=== PATIENT | male | born 1960 | race African-American/Black ===

== ENCOUNTER 2017-02-10 14:18 | Emergency (ER) | payer MEDICAID, OTHER ==
[~2017-02-10] VITALS: Ht 180.3 cm; Wt 81.0 kg
[2017-02-10] MEDS ORDERED: SODIUM CHLORIDE 0.9% 1,000 ML IV ONE ×2 (14:45→17:00)
[2017-02-10] MEDS ORDERED: KETOROLAC 30MG/ML VIAL IV STA (14:45)
[2017-02-10 15:34] LABS: BASOPHILS % 0.8 % (0.0-2.0); EOSINOPHILS % 3.5 % (0.0-5.0); HEMATOCRIT. 38.5 % (42.0-52.0); LYMPHOCYTES % 18.1 % (20.0-50.0); MEAN CORPUSCULAR HEMOGLOBIN 29.9 pg (28.0-32.0); MEAN CORPUSCULAR VOLUME 88.2 fL (80.0-94.0); MEAN PLATELET VOLUME 7.1 fl (7.4-10.4); MONOCYTES % 7.6 % (2.0-8.0); PLATELET 259 x1000/uL (130-400); RED BLOOD CELL COUNT 4.37 mill/uL (4.7-6.1); RED CELL DISTRIBUTION WIDTH 13.2 % (11.6-14.6)
[2017-02-10 15:35] LABS: CHLORIDE 106 mEq/L (98-107)
[2017-02-10 15:39] LABS: CARBON DIOXIDE 32 mEq/L (21-32); ETHANOL BLOOD < 10 mg/dL
[2017-02-10 15:43] LABS: CREATINE KINASE 317 IU/L (39-308); TROPONIN I < 0.02 ng/mL (0.00-0.04)
[2017-02-10 16:11] LABS: *AMPHETAMINES SCREEN URINE NEGATIVE (NEGATIVE); *BARBITURATES SCREEN URINE NEGATIVE (NEGATIVE); *BENZODIAZEPINES SCREEN URINE NEGATIVE (NEGATIVE); *COCAINE SCREEN URINE PRESUMTIVE POSITIVE (NEGATIVE); CANNABINOID URINE SCREEN NEGATIVE (NEGATIVE); METHADONE URINE SCREEN NEGATIVE (NEGATIVE); OPIATES URINE SCREEN NEGATIVE (NEGATIVE); PHENCYCLIDINE URINE SCREEN NEGATIVE (NEGATIVE)
[2017-02-10] MEDS ORDERED: LORAZEPAM 2MG/ML CPJ IV ONE (17:00)
[2017-02-10] MEDS ORDERED: AMLODIPINE 5MG TABLET PO ONE (21:00)
[2017-02-10 22:56] VITALS: BP 185/104
== END 2017-02-10 23:01 | disposition home or self-care (01) ==
LOC: ER 16:17
DX: T40.5X1A Poisoning by cocaine, accidental (unintentional), initial encounter (principal); R07.9 Chest pain, unspecified; I10 Essential (primary) hypertension; F12.10 Cannabis abuse, uncomplicated; F15.10 Other stimulant abuse, uncomplicated; Y92.89 Other specified places as the place of occurrence of the external cause
CPT/HCPCS: 36415; 71010; 80053; 80305; 82550; 84484; 85025; 85610; 93005; 96361; 96374; 96375; 99285; G0482; J1885; J2060; J7030; Z7610

== ENCOUNTER 2018-05-19 09:06 | Emergency (ER) | payer MEDICAID ==
[~2018-05-19] VITALS: Ht 177.8 cm; Wt 88.0 kg
[2018-05-19] MEDS ORDERED: KETOROLAC 60MG/2ML VIAL IM ONE (09:45)
[2018-05-19] MEDS ORDERED: DIAZEPAM 5 MG TABLET PO ONE (09:45)
[2018-05-19 11:54] LABS: *AMPHETAMINES SCREEN URINE PRESUMTIVE POSITIVE (NEGATIVE); *BARBITURATES SCREEN URINE NEGATIVE (NEGATIVE); *BENZODIAZEPINES SCREEN URINE NEGATIVE (NEGATIVE)
[2018-05-19 11:55] LABS: *COCAINE SCREEN URINE PRESUMTIVE POSITIVE (NEGATIVE); CANNABINOID URINE SCREEN PRESUMTIVE POSITIVE (NEGATIVE); METHADONE URINE SCREEN NEGATIVE (NEGATIVE); OPIATES URINE SCREEN NEGATIVE (NEGATIVE); PHENCYCLIDINE URINE SCREEN PRESUMTIVE POSITIVE (NEGATIVE)
[2018-05-19 13:29] VITALS: BP 171/94
== END 2018-05-19 13:30 | disposition home or self-care (01) ==
LOC: ER 09:14
DX: M54.40 Lumbago with sciatica, unspecified side (principal); M25.551 Pain in right hip; F15.129 Other stimulant abuse with intoxication, unspecified; F12.10 Cannabis abuse, uncomplicated; F16.10 Hallucinogen abuse, uncomplicated; I10 Essential (primary) hypertension; F14.10 Cocaine abuse, uncomplicated
CPT/HCPCS: 72100; 73502; 80305; 96372; 99284; J1885

== ENCOUNTER 2019-05-09 14:45 | Emergency (ER) | payer SELFPAY ==
[~2019-05-09] VITALS: Ht 182.9 cm; Wt 80.0 kg
[2019-05-09] MEDS ORDERED: HYDROCODONE/ACETAMINOPHEN 5/325MG TABLET PO STA (22:41)
[2019-05-09] MEDS ORDERED: KETOROLAC 60MG/2ML VIAL IM STA (22:41)
[2019-05-09 23:18] LABS: BASOPHILS % 0.7 % (0.0-2.0); EOSINOPHILS % 2.7 % (0.0-5.0); HEMATOCRIT. 38.8 % (42.0-52.0); HEMOGLOBIN. 13.1 g/dL (14.0-18.0); LYMPHOCYTES % 16.3 % (20.0-50.0); MEAN CORPUSCULAR HEMOGLOBIN 28.7 pg (28.0-32.0); MEAN CORPUSCULAR VOLUME 85.1 fL (80.0-94.0); MEAN PLATELET VOLUME 6.5 fl (7.4-10.4); MONOCYTES % 10.1 % (2.0-8.0); NEUTROPHILS % 70.2 % (40.0-76.0); PLATELET 280 x1000/uL (130-400); RED BLOOD CELL COUNT 4.55 mill/uL (4.7-6.1); RED CELL DISTRIBUTION WIDTH 13.1 % (11.6-14.6)
[2019-05-09 23:24] LABS: CHLORIDE 107 mEq/L (98-107)
[2019-05-09 23:27] LABS: ETHANOL BLOOD < 10 mg/dL
[2019-05-10 00:52] VITALS: BP 155/87
== END 2019-05-10 00:50 | disposition home or self-care (01) ==
LOC: ER 14:45
DX: M54.41 Lumbago with sciatica, right side (principal); M25.551 Pain in right hip; F14.10 Cocaine abuse, uncomplicated; F12.10 Cannabis abuse, uncomplicated; F15.10 Other stimulant abuse, uncomplicated; I10 Essential (primary) hypertension
CPT/HCPCS: 36415; 80048; 80307; 80320; 80329; 85025; 96372; 99283; J1885; G0480

== ENCOUNTER 2019-05-10 10:31 | Emergency (ER) | payer SELFPAY ==
[~2019-05-10] VITALS: Ht 177.8 cm; Wt 80.0 kg
[2019-05-10 14:54] VITALS: BP 148/98
== END 2019-05-10 14:30 | disposition home or self-care (01) ==
LOC: ER 10:31
DX: Z00.01 Encounter for general adult medical examination with abnormal findings (principal); I10 Essential (primary) hypertension; F14.10 Cocaine abuse, uncomplicated; F12.10 Cannabis abuse, uncomplicated; F15.10 Other stimulant abuse, uncomplicated
CPT/HCPCS: 99282

== ENCOUNTER 2020-04-27 03:11 | Emergency (ER) | payer MEDICAID ==
[~2020-04-27] VITALS: Ht 182.9 cm; Wt 91.0 kg
[2020-04-27] MEDS ORDERED: ONDANSETRON HCL 4MG/2ML INJ IV STA (04:50)
[2020-04-27] MEDS ORDERED: SODIUM CHLORIDE 0.9% 1,000 ML IV ONE (05:00)
[2020-04-27] MEDS ORDERED: FENTANYL CITRATE/PF 50MCG/ML 2ML VIAL IV ONE (05:00)
[2020-04-27 05:31] LABS: BASOPHILS % 0.7 % (0.0-2.0); EOSINOPHILS % 1.7 % (0.0-5.0); HEMOGLOBIN. 12.7 g/dL (14.0-18.0); LYMPHOCYTES % 11.4 % (20.0-50.0); MEAN CORPUSCULAR HEMOGLOBIN 28.4 pg (28.0-32.0); MEAN CORPUSCULAR VOLUME 84.7 fL (80.0-94.0); MEAN PLATELET VOLUME 7.3 fl (7.4-10.4); MONOCYTES % 7.4 % (2.0-8.0); NEUTROPHILS % 78.8 % (40.0-76.0); PLATELET 323 x1000/uL (130-400); RED BLOOD CELL COUNT 4.48 mill/uL (4.7-6.1); RED CELL DISTRIBUTION WIDTH 13.5 % (11.6-14.6)
[2020-04-27 05:38] LABS: CHLORIDE 104 mEq/L (98-107)
[2020-04-27 05:40] LABS: PROTHROMBIN TIME 10.3 sec (9.6-11.0)
[2020-04-27 05:44] LABS: ETHANOL BLOOD < 10 mg/dL
[2020-04-27 08:18] VITALS: BP 144/93
== END 2020-04-27 08:39 | disposition home or self-care (01) ==
LOC: ER 03:11
DX: S00.83XA Contusion of other part of head, initial encounter (principal); S40.011A Contusion of right shoulder, initial encounter; I10 Essential (primary) hypertension; Y00.XXXA Assault by blunt object, initial encounter; Y93.89 Activity, other specified; Y92.89 Other specified places as the place of occurrence of the external cause
CPT/HCPCS: 36415; 70450; 70486; 71045; 72125; 80053; 80307; 80320; 80329; 82140; 83690; 84484; 85025; 85610; 86850; 86900; 86901; 96361; 96374; 96375; 99285; J2405; J3010; J7030; G0480

== ENCOUNTER 2020-08-13 11:28 | Emergency (ER) | payer MEDICAID ==
[~2020-08-13] VITALS: Ht 172.7 cm; Wt 68.0 kg
[2020-08-13 12:31] LABS: EOSINOPHILS % 3.6 % (0.0-5.0); LYMPHOCYTES % 9.3 % (20.0-50.0); MEAN CORPUSCULAR HEMOGLOBIN 25.4 pg (28.0-32.0); MEAN CORPUSCULAR VOLUME 78.5 fL (80.0-94.0); MONOCYTES % 4.3 % (2.0-8.0); NEUTROPHILS % 81.8 % (40.0-76.0); PLATELET 587 x1000/uL (130-400); RED BLOOD CELL COUNT 2.52 mill/uL (4.7-6.1); RED CELL DISTRIBUTION WIDTH 19.7 % (11.6-14.6)
[2020-08-13 12:35] LABS: CHLORIDE 106 mEq/L (98-107)
[2020-08-13 12:36] LABS: HEMATOCRIT. 19.8 % (42.0-52.0); HEMOGLOBIN. 6.4 g/dL (14.0-18.0)
[2020-08-13 12:37] LABS: PROTHROMBIN TIME 11.2 sec (9.6-11.0)
[2020-08-13 19:40] VITALS: BP 120/83
== END 2020-08-13 19:56 | disposition home or self-care (01) ==
LOC: ER 11:28
DX: D64.9 Anemia, unspecified (principal)
CPT/HCPCS: 36415; 80053; 85025; 85610; 86780; 86850; 86900; 86901; 86920; 93005; 99285; Z7610; P9016

== ENCOUNTER 2022-05-08 05:08 | Emergency (ER) | payer MEDICAID ==
[~2022-05-08] VITALS: Ht 175.3 cm; Wt 79.1 kg
[2022-05-08 05:15] VITALS: BP 180/92
== END 2022-05-08 08:45 | disposition left against medical advice (07) ==
LOC: ER 05:08
DX: Z53.21 Procedure and treatment not carried out due to patient leaving prior to being seen by health care provider (principal)

== ENCOUNTER 2022-05-31 14:21 | Emergency (ER) | payer MEDICAID, OTHER ==
[~2022-05-31] VITALS: Ht 180.3 cm; Wt 86.0 kg
[2022-05-31] MEDS ORDERED: SODIUM CHLORIDE 0.9% 1,000 ML IV ONE (14:45)
[2022-05-31 15:27] LABS: CHLORIDE 109 mEq/L (98-107)
[2022-05-31 15:39] LABS: ETHANOL BLOOD < 10 mg/dL
[2022-05-31 16:41] LABS: BASOPHILS % 1.1 % (0.0-2.0); EOSINOPHILS % 4.5 % (0.0-5.0); HEMOGLOBIN. 12.8 g/dL (14.0-18.0); LYMPHOCYTES % 27.5 % (20.0-50.0); MEAN CORPUSCULAR HEMOGLOBIN 28.8 pg (28.0-32.0); MEAN CORPUSCULAR VOLUME 85.5 fL (80.0-94.0); MEAN PLATELET VOLUME 7.2 fl (7.4-10.4); NEUTROPHILS % 58.9 % (40.0-76.0); PLATELET 251 x1000/uL (130-400); RED BLOOD CELL COUNT 4.45 mill/uL (4.7-6.1); RED CELL DISTRIBUTION WIDTH 13.3 % (11.6-14.6)
[2022-05-31] MEDS ORDERED: NITROGLYCERIN OINT 1GM/INCH UDPKT TD NR (17:45)
[2022-05-31 19:00] LABS: CLARITY URINE CLEAR (CLEAR); COLOR URINE YELLOW (YELLOW); KETONES URINE NEGATIVE (NEGATIVE); LEUKOCYTE ESTERASE URINE NEGATIVE (NEGATIVE); NITRITE URINE NEGATIVE (NEGATIVE); OCCULT BLOOD URINE NEGATIVE (NEGATIVE); PH URINE 6.5 (4.5-8.0); PROTEIN URINE NEGATIVE (NEGATIVE); SPECIFIC GRAVITY URINE 1.012 (1.005-1.030); UROBILINOGEN URINE 0.2 E.U./dL (0.2-1.0)
[2022-05-31 19:13] LABS: *AMPHETAMINES SCREEN URINE PRESUMTIVE POSITIVE (NEGATIVE); *BARBITURATES SCREEN URINE NEGATIVE (NEGATIVE); *BENZODIAZEPINES SCREEN URINE NEGATIVE (NEGATIVE); *COCAINE SCREEN URINE NEGATIVE (NEGATIVE); CANNABINOID URINE SCREEN NEGATIVE (NEGATIVE); METHADONE URINE SCREEN NEGATIVE (NEGATIVE); OPIATES URINE SCREEN NEGATIVE (NEGATIVE); PHENCYCLIDINE URINE SCREEN PRESUMTIVE POSITIVE (NEGATIVE)
[2022-05-31] MEDS ORDERED: IBUPROFEN 400MG TABLET PO NR (20:30)
[2022-05-31] MEDS ORDERED: CLONIDINE 0.1MG TABLET PO ONE (21:00)
[2022-05-31 21:40] VITALS: BP 157/90
== END 2022-05-31 22:18 | disposition short-term general hospital (02) ==
LOC: ER 14:21
DX: G93.40 Encephalopathy, unspecified (principal); I10 Essential (primary) hypertension; N17.9 Acute kidney failure, unspecified; Z98.890 Other specified postprocedural states
CPT/HCPCS: 36415; 70450; 71045; 80053; 80305; 80320; 81003; 83880; 84484; 85025; 93005; 96360; 96361; 99285; J7030; Z7610; G0480

== ENCOUNTER 2022-07-26 19:06 | Emergency (ER) | payer OTHER ==
[~2022-07-26] VITALS: Ht 177.8 cm; Wt 85.0 kg
[2022-07-26] MEDS ORDERED: SODIUM CHLORIDE 0.9% 1,000 ML IV ONE (20:00)
[2022-07-26 20:11] LABS: BASOPHILS % 1.3 % (0.0-2.0); EOSINOPHILS % 3.2 % (0.0-5.0); HEMATOCRIT. 42.5 % (42.0-52.0); HEMOGLOBIN. 13.7 g/dL (14.0-18.0); LYMPHOCYTES % 24.7 % (20.0-50.0); MEAN CORPUSCULAR HEMOGLOBIN 28.2 pg (28.0-32.0); MEAN CORPUSCULAR VOLUME 87.5 fL (80.0-94.0); MEAN PLATELET VOLUME 7.4 fl (7.4-10.4); MONOCYTES % 8.5 % (2.0-8.0); NEUTROPHILS % 62.3 % (40.0-76.0); PLATELET 277 x1000/uL (130-400); RED BLOOD CELL COUNT 4.86 mill/uL (4.7-6.1); RED CELL DISTRIBUTION WIDTH 14.1 % (11.6-14.6)
[2022-07-26 20:17] LABS: CHLORIDE 109 mEq/L (98-107)
[2022-07-26 20:29] LABS: CREATINE KINASE 294 IU/L (39-308); ETHANOL BLOOD 15 mg/dL
[2022-07-26 20:29] LABS: CLARITY URINE CLEAR (CLEAR); COLOR URINE YELLOW (YELLOW); KETONES URINE NEGATIVE (NEGATIVE); LEUKOCYTE ESTERASE URINE NEGATIVE (NEGATIVE); NITRITE URINE NEGATIVE (NEGATIVE); OCCULT BLOOD URINE NEGATIVE (NEGATIVE); PROTEIN URINE NEGATIVE (NEGATIVE); UROBILINOGEN URINE 0.2 E.U./dL (0.2-1.0)
[2022-07-26 20:41] LABS: *AMPHETAMINES SCREEN URINE PRESUMTIVE POSITIVE (NEGATIVE); *BARBITURATES SCREEN URINE NEGATIVE (NEGATIVE); *BENZODIAZEPINES SCREEN URINE NEGATIVE (NEGATIVE); *COCAINE SCREEN URINE NEGATIVE (NEGATIVE); CANNABINOID URINE SCREEN NEGATIVE (NEGATIVE); METHADONE URINE SCREEN NEGATIVE (NEGATIVE); OPIATES URINE SCREEN NEGATIVE (NEGATIVE); PHENCYCLIDINE URINE SCREEN PRESUMTIVE POSITIVE (NEGATIVE)
[2022-07-26 21:31] VITALS: BP 175/123
== END 2022-07-27 01:36 | disposition home or self-care (01) ==
LOC: ER 19:14
DX: F16.188 Hallucinogen abuse with other hallucinogen-induced disorder (principal); F15.188 Other stimulant abuse with other stimulant-induced disorder; I10 Essential (primary) hypertension; D72.819 Decreased white blood cell count, unspecified
CPT/HCPCS: 36415; 80053; 80305; 80320; 81003; 82550; 84484; 85025; 99283; J7030; Z7610; G0480

== ENCOUNTER 2022-08-06 11:46 | Emergency (ER) | payer OTHER ==
[~2022-08-06] VITALS: Ht 170.2 cm; Wt 89.0 kg
[2022-08-06 11:49] VITALS: BP 179/116
[2022-08-06] MEDS ORDERED: MAGNESIUM/ALUMINUM HYDROXIDE/SIMETHICONE 30ML UDC PO STA (12:28)
[2022-08-06 14:09] LABS: EOSINOPHILS % 2.7 % (0.0-5.0); HEMATOCRIT. 35.7 % (42.0-52.0); HEMOGLOBIN. 11.8 g/dL (14.0-18.0); MEAN CORPUSCULAR VOLUME 84.6 fL (80.0-94.0); MEAN PLATELET VOLUME 6.7 fl (7.4-10.4); MONOCYTES % 8.2 % (2.0-8.0); NEUTROPHILS % 70.1 % (40.0-76.0); PLATELET 275 x1000/uL (130-400); RED BLOOD CELL COUNT 4.22 mill/uL (4.7-6.1)
[2022-08-06 14:16] LABS: CHLORIDE 110 mEq/L (98-107)
[2022-08-06 14:25] LABS: ETHANOL BLOOD < 10 mg/dL
[2022-08-06 14:28] LABS: *AMPHETAMINES SCREEN URINE PRESUMTIVE POSITIVE (NEGATIVE); *BARBITURATES SCREEN URINE NEGATIVE (NEGATIVE); *BENZODIAZEPINES SCREEN URINE NEGATIVE (NEGATIVE); *COCAINE SCREEN URINE NEGATIVE (NEGATIVE); CANNABINOID URINE SCREEN NEGATIVE (NEGATIVE); METHADONE URINE SCREEN NEGATIVE (NEGATIVE); OPIATES URINE SCREEN NEGATIVE (NEGATIVE); PHENCYCLIDINE URINE SCREEN PRESUMTIVE POSITIVE (NEGATIVE)
== END 2022-08-06 16:13 | disposition home or self-care (01) ==
LOC: ER 12:57
DX: T40.991A Poisoning by other psychodysleptics [hallucinogens], accidental (unintentional), initial encounter (principal); F16.129 Hallucinogen abuse with intoxication, unspecified; R10.9 Unspecified abdominal pain; R53.1 Weakness; R42 Dizziness and giddiness; F15.129 Other stimulant abuse with intoxication, unspecified; T43.651A Poisoning by methamphetamines accidental (unintentional), initial encounter; Y92.89 Other specified places as the place of occurrence of the external cause
CPT/HCPCS: 36415; 80053; 80305; 80320; 82962; 85025; 99283; G0480